=== PATIENT | female | born 2000 | race Caucasian/White ===

== ENCOUNTER 2019-04-04 12:43 | Emergency (ER) | payer SELFPAY ==
[2019-04-04 13:03] VITALS: BP 109/58; PULSE 84; TEMP 98.9; BMI 25.8
--- NOTE | 2019-04-04 15:00 | PDOC ---
History of Present Illness - General Chief Complaint: Pain, Acute Stated Complaint: ABD PAIN Time Seen by Provider: 04/04/19 15:00 History Source: Patient - History of Present Illness Initial Comments: Ms. Renteria is a 18 y/o at approx 5 weeks gestation p/w 9 days of lower R sided abdominal pain. She reports worsening of the pain this morning as well as nausea, which prompted her to seek evaluation. She reports a diagnosis of R ovarian cyst earlier in the . She denies any vaginal bleeding or discharge. She rates the pain 5/10, non-radiating, aching pain, worsened with movement. She denies any chest pain, sob, palpitations, weakness, vomiting. Past History - Past Medical History Allergies/Adverse Reactions: Allergies Allergy/AdvReac Type Severity Reaction Status Date / Time No Known Allergies Allergy Verified 04/04/19 13:00 Home Medications: Ambulatory Orders NK [No Known Home Medication] 04/04/19 COPD: No - Psycho Social/Smoking Cessation Hx Smoking History: Never smoked Hx Alcohol Use: No Drug/Substance Use Hx: No Review of Systems - Review of Systems Able to Perform ROS?: Yes Comments:: ROS: GENERAL/CONSTITUTIONAL: No fever or chills. No weakness. HEAD, EYES, EARS, NOSE AND THROAT: No change in vision. No ear pain or discharge. No sore throat. CARDIOVASCULAR: No chest pain or shortness of breath RESPIRATORY: No cough, wheezing, or hemoptysis. GASTROINTESTINAL: Nausea. No vomiting, diarrhea or constipation. GENITOURINARY: Abdominal pain. No dysuria, frequency, or change in urination. MUSCULOSKELETAL: No joint or muscle swelling or pain. No neck or back pain. SKIN: No rash NEUROLOGIC: No headache, vertigo, loss of consciousness, or change in strength/ sensation. ENDOCRINE: No increased thirst. No abnormal weight change HEMATOLOGIC/LYMPHATIC: No anemia, easy bleeding, or history of blood clots. ALLERGIC/IMMUNOLOGIC: No hives or skin allergy. *Physical Exam - Vital Signs Last Vital Signs Temp Pulse Resp BP Pulse Ox 98.9 F 84 18 109/58 L 100 04/04/19 13:01 04/04/19 13:01 04/04/19 13:01 04/04/19 13:01 04/04/19 13:01 - Physical Exam PE: GENERAL: Awake, alert, and fully oriented, in no acute distress HEAD: No signs of trauma, normocephalic, atraumatic EYES: PERRLA, EOMI, sclera anicteric, conjunctiva clear ENT: Auricles normal inspection, hearing grossly normal, nares patent, oropharynx clear without exudates. Moist mucosa NECK: Normal ROM, supple, no lymphadenopathy, JVD, or masses LUNGS: No distress, speaks full sentences, clear to auscultation bilaterally HEART: Regular rate and rhythm, normal S1 and S2, no murmurs, rubs or gallops, peripheral pulses normal and equal bilaterally. ABDOMEN: Suprapubic tenderness. Otherwise: Soft, nontender, normoactive bowel sounds. No guarding, no rebound. No masses EXTREMITIES : Normal inspection, Normal range of motion, no edema. No clubbing or cyanosis NEUROLOGICAL: Cranial nerves II through XII grossly intact. Normal speech, normal gait, no focal sensorimotor deficits SKIN: Warm, Dry, normal turgor, no rashes or lesions noted Medical Decision Making - Medical Decision Making 18F at approx 5 weeks gestation w/hx ovarian cyst p/w suprapubic pain with nausea. Ddx includes ectopic , ruptured ovarian cyst, ovarian torsion. Plan: UA Urine culture Urine test GC amplification test Transvaginal US to evaluate /rule out torsion Dispo: Likely discharge --- UA - notable for 2+ leuk esterase. Plan for abx treatment of asymptomatic bacteruria given . test - positive --- US - notable for IUP at approx 5 weeks 5 days, with normal movements and normal FHR. Plan for discharge with close PCP follow up. Discharge - Discharge Information Problems reviewed: Yes Clinical Impression/Diagnosis: Qualifiers: Weeks of gestation: less than 8 weeks Qualified Code(s): Z3A.01 - Less than 8 weeks gestation of Condition: Stable Disposition: HOME - Admission No - Follow up/Referral - Patient Discharge Instructions Patient Printed Discharge Instructions: Medications and Additional Instructions: You were seen in the ER for abdomen discomfort and missed period. Your test was positive. The fetus is within the uterus in the correct location. It is approximately 5 weeks and 5 days by our ultrasound read (please see the ultrasound report provided). Follow up with your primary care provider as soon as possible, in the next 2-3 days. - Post Discharge Activity Work/Back to School Note: Back to Work
[2019-04-04 16:18] LABS: EPI CELLS 2.7 /HPF (0-5/HPF); HYALINE CASTS 4 /lpf (0-8); PH,URINE 6.5 (5.0-8.0); URINE APPEARANCE CLEAR; URINE BACTERIA 240.2 /hpf (NEGATIVE); URINE BILIRUBIN NEGATIVE (NEGATIVE); URINE COLOR YELLOW; URINE GLUCOSE (UA) NEGATIVE (NEGATIVE); URINE KETONE TRACE (NEGATIVE); URINE LEUK ESTERASE 2+ (NEGATIVE); URINE NITRITE NEGATIVE (NEGATIVE); URINE PROTEIN NEGATIVE (NEGATIVE); URINE RBC 1 /hpf (0-4); URINE UROBILINOGEN 0.2 mg/dL (0.2-1.0); URINE WBC 29 /hpf (0-5)
--- NOTE | 2019-04-04 17:04 | PDOC ---
Documentation entered by Sonido Cunningham SCRIBE, acting as scribe for Marian Matos MD. Marian Matos MD: This documentation has been prepared by the Octavio villaseñor Nirvannie, SCRIBE, under my direction and personally reviewed by me in its entirety. I confirm that the documentation accurately reflects all work, treatment, procedures, and medical decision making performed by me. Attending Attestation - Resident Resident Name: ChatoshikhaSanti - ED Attending Attestation I have performed the following: I have examined & evaluated the patient, The case was reviewed & discussed with the resident, I agree w/resident's findings & plan, Exceptions are as noted - HPI HPI: 04/04/19 16:56 The patient is a 18 year old female, with no significant past medical history who presents to the emergency department with 9 days of intermittent pelvic pain described as a intermittent stabbing, burning sensation with associated nausea. She denies any vaginal bleeding or abnormal discharge. She denies recent fevers , chills, headache or dizziness. She denies recent vomit, diarrhea or constipation. She denies recent dysuria, frequency, urgency or hematuria. She denies recent chest pain or shortness of breath. Allergies: NKDA LMP: 40 days ago. - Physicial Exam PE: 04/04/19 16:56 GENERAL: Awake, alert, and fully oriented, in no acute distress HEAD: No signs of trauma EYES: PERRLA, EOMI, sclera anicteric, conjunctiva clear ENT: Auricles normal inspection, hearing grossly normal, nares patent, oropharynx clear without exudates. Moist mucosa NECK: Normal ROM, supple, no lymphadenopathy, JVD, or masses LUNGS: Breath sounds equal, clear to auscultation bilaterally. No wheezes, and no crackles HEART: Regular rate and rhythm, normal S1 and S2, no murmurs, rubs or gallops ABDOMEN: Soft, +Mild suprapubic tenderness. Normoactive bowel sounds. No guarding, no rebound. No masses EXTREMITIES: Normal range of motion, no edema. No clubbing or cyanosis. No cords, erythema, or tenderness NEUROLOGICAL: Cranial nerves II through XII grossly intact. Normal speech. SKIN: Warm, Dry, normal turgor, no rashes or lesions noted. - Medical Decision Making 04/04/19 17:02 Pt presents to the ED complaining of a 9 day history of suprapubic pain. LMP 40 days ago, positive U preg. Differential includes ectopic , UTI, less likely ovarian cyst. Will check labs and US, reassess.
== END 2019-04-04 18:00 | disposition home or self-care (01) ==
LOC: JER 12:43
DX: O26.891 Other specified pregnancy related conditions, first trimester (principal); R10.2 Pelvic and perineal pain; Z3A.01 Less than 8 weeks gestation of pregnancy
CPT/HCPCS: 36415; 76817-TC; 81003; 84703; 87086; 87491; 87591; 99284-25